=== PATIENT | male | born 1995 | race Hispanic/Latino ===

== ENCOUNTER 2024-05-24 07:19 | Emergency (ER) | payer OTHER ==
[~2024-05-24] VITALS: Ht 170.2 cm; Wt 82.0 kg
[2024-05-24] MEDS ORDERED: ZPAK PO (08:30)
[2024-05-24 08:38] VITALS: BP 133/90
== END 2024-05-24 08:39 | disposition home or self-care (01) ==
LOC: ED 07:19
DX: J06.9 Acute upper respiratory infection, unspecified (principal); Z20.822 Contact with and (suspected) exposure to COVID-19